=== PATIENT | male | born 1965 | race Caucasian/White ===

== ENCOUNTER 2017-03-01 13:41 | Emergency (ER) | payer BC, OTHER ==
[~2017-03-01] VITALS: Ht 170.2 cm; Wt 72.2 kg
[2017-03-01 13:42] VITALS: TEMP 36.7; Ht 170.2 cm; Wt 72.2 kg
--- NOTE | 2017-03-01 14:21 | EMERGENCY ROOM VISIT NOTE ---
History First contact with patient: 13:48 Chief Complaint: HIP PAIN Stated Complaint: HIP, LOWER BACK, SHOULDER History of Present Illness The patient is a 51 year old male who presents to the Emergency Room with complaints of left hip pain, left shoulder pain and left facial pain after falling from a tree stand yesterday. He reports that he had just finished hunting and was climbing down from his tree stand when his phone rang. He answered his phone and lost his footing and slipped and fell backwards. He states that he landed approximately 20 feet and landed on his left side. He does not completely remember everything that happened, and feels that he may have lost consciousness for a few seconds. He reports pain in his left hip, shoulder and left side of his face. He rates his discomfort a 4/10 at this time. He denies any headache, blurred vision, slurred speech or nausea. He denies any abdominal pain, chest pain or shortness of breath. Review of Systems A complete 10 point review of systems was reviewed with the patient with pertinent positives and negatives as per history of present illness. All else were negative. Social History Smoking Status: Never Smoker Current/Historical Medications Scheduled Prednisone (Prednisone), 50 MG PO DAILY Scheduled PRN Ibuprofen (Advil), 200-600 MG PO Q4H PRN for Pain Physical Exam Vital Signs Date Time Temp Pulse Resp B/P (MAP) Pulse Ox O2 Delivery O2 Flow Rate FiO2 03/01/17 16:50 93 18 114/80 96 03/01/17 15:44 78 18 123/74 99 Room Air 03/01/17 13:42 36.7 84 20 129/81 98 Room Air Physical Exam VITALS: Vitals are noted on the nurse's note and reviewed by myself. Vital signs stable. GENERAL: This is a 51-year-old male, in no acute distress, nondiaphoretic, well- developed well-nourished. SKIN: There are abrasions to the left side of the face. No lacerations. There is a large area of ecchymosis to the left lateral thigh. There is a small abrasion to the left posterior shoulder. HEAD: There are abrasions and tenderness to palpation in the left side of the face and left periorbital region. Otherwise, normocephalic atraumatic. EARS: External auditory canals clear, tympanic membranes pearly dangelo without erythema or effusion bilaterally. No hemotympanum. EYES: Pupils equal round and reactive to light and accommodation. Extraocular movements intact. MOUTH: Mucous membranes moist. NECK: Supple without nuchal rigidity. Cervical spine is nontender. HEART: Regular rate and rhythm without murmurs gallops or rubs. LUNGS: Clear to auscultation bilaterally without wheezes, rales or rhonchi. No retractions or accessory muscle use. ABDOMEN: There is mild tenderness to the left lower chest wall/upper abdomen. There is no ecchymosis. MUSCULOSKELETAL: There is tenderness to palpation in the left posterior shoulder and left lateral thigh. No tenderness over the lumbar or thoracic spine. Extremities are otherwise nontender. NEURO: Patient was alert and oriented to person place and time. Normal sensation to light and sharp touch. No focal neurological deficits. Medical Decision & Procedures ER Provider Diagnostic Interpretation: HEAD WITHOUT CONTRAST (CT) IMPRESSION: 1. No acute intracranial abnormality. 2. Mild left infratemporal and periorbital soft tissue swelling without calvarial fracture or opaque foreign body. CERVICAL SPINE W/O IMPRESSION: 1. No acute cervical spine fracture or subluxation. 2. Degenerative changes of the cervical spine as above, most pronounced at the C5-6 and C6-C7 levels. CHEST CT WITH CONTRAST IMPRESSION: 1. No acute intrathoracic abnormality identified. No pneumothorax. 2. No acute thoracic fracture identified. ABDOMEN AND PELVIS CT WITH IV AND ORAL CONTRAST IMPRESSION: 1. No acute intra-abdominal or intrapelvic abnormality identified. No evidence of solid organ injury. 2. Acute nondisplaced fracture of the anterolateral left 10th rib. 3. Additional findings as above. L SHOULDER MIN 2 VIEWS ROUTINE IMPRESSION: Acute nondisplaced fracture of the left proximal humerus along the inferior portion of the greater tuberosity. L FEMUR 2 VIEWS ROUTINE IMPRESSION: Mild soft tissue swelling without acute fracture or dislocation. Laboratory Results Test 03/01/17 14:16 Bedside Hemoglobin 14.3 g/dl (14.0-18.0) Bedside Hematocrit 42 % (42-52) Bedside Sodium 140 mEq/L (135-144) Bedside Potassium 3.9 mEq/L (3.3-5.0) Bedside Chloride 102 mEq/L (101-112) Bedside Total CO2 24 mEq/l (24-31) Anion Gap 18.0 mmol/L (16-25) Bedside Blood Urea Nitrogen 15 mg/dl (7-18) Bedside Creatinine 1.0 mg/dl (0.6-1.3) Bedside Glucose (other) 109 mg/dl (70-99) Bedside Ionized Calcium (Linnette) 1.17 mmol/l (1.12-1.32) Medical Decision Differential diagnosis includes fracture, contusion, dislocation, skull fracture , intracranial hemorrhage, intra-abdominal injury, pneumothorax, among others. The patient is a 51-year-old male who presents today complaining of left hip and shoulder pain after fall from a height. CT scan of the head and neck were performed and were unremarkable. CT of the chest and abdomen/pelvis were performed and showed a non-distracted fracture of the left 10th rib. He was given an incentive spirometer. There were no acute intra-abdominal or intrathoracic findings. Patient has a hematoma to the left lateral upper leg, but no fx on X-ray. Shoulder x-ray did show a nondisplaced fx of the proximal humerus at the greater tuberosity. Patient was placed in an arm sling and given information for orthopedic follow-up. He was offered pain medication but declined. He did request some prednisone for his back, as he states that his back has been tightening up since this occurred and prednisone is the only thing that works for him. He will follow-up with orthopedics and his primary care provider as needed. Based on the patient's presentation and work up, I feel the patient is stable for outpatient treatment. The patient was educated to return to the emergency department for any worsening of their current condition or new/concerning symptoms. He will follow up with orthopedics. Medication Reconcilliation Current Medication List: was personally reviewed by me Blood Pressure Screening Patient's blood pressure: Normal blood pressure Impression Primary Impression: Fracture of greater tuberosity of humerus Additional Impressions: Rib fracture Fall Departure Information Dispostion Home / Self-Care Condition GOOD Prescriptions Prednisone (Prednisone) 50 Mg Tab 50 MG PO DAILY for 4 Days, #4 TAB Prov: Kelsey Fischer .JEFF 03/01/17 Referrals Eun Peck M.D. (PCP) Pawel Kat D.O. Patient Instructions My [facility] Additional Instructions Follow-up with Dr. Kat for further evaluation of your humerus fracture. For pain control, you can use the following [id number] medicines (if >12 yo): - Regular strength (325mg/tab) Tylenol (acetaminophen) 2 tabs every 4-6 hours as needed. Do not exceed 12 tablets in a 24 hour period. Avoid taking more than 4 grams (4000 mg) of Tylenol per day. This includes any other sources of acetaminophen you may take on a regular basis. - Regular strength (200 mg/tab) Advil (ibuprofen) 1-2 tabs every 4-6 hours as needed. Do not exceed a dose of 3200 mg per day. Apply ice to the shoulder and ribs as needed. Use the incentive spirometer as directed. This will help to fully inflate your lungs and prevent pneumonia or lung collapse. Follow-up with your primary care provider as needed. Return to the emergency department with any worsening or new/concerning symptoms. Problem Qualifiers Primary Impression: Fracture of greater tuberosity of humerus Encounter type: initial encounter Fracture type: closed Fracture alignment : nondisplaced Laterality: left Qualified Codes: S42.255A - Nondisplaced fracture of greater tuberosity of left humerus, initial encounter for closed fracture Additional Impressions: Rib fracture Encounter type: initial encounter Rib fracture type: single rib Fracture type: closed Laterality: left Qualified Codes: S22.32XA - Fracture of one rib, left side, initial encounter for closed fracture Fall Encounter type: initial encounter Qualified Codes: W19.XXXA - Unspecified fall, initial encounter
[2017-03-01 14:33] LABS: ISTAT HEMOGLOBIN 14.3 g/dl (14.0-18.0); ISTAT IONIZED CALCIUM 1.17 mmol/l (1.12-1.32)
[2017-03-01] MEDS ORDERED: IBUP-1050 PO (14:33)
[2017-03-01] MEDS ORDERED: OPTIRAY 320 IV PRN (15:15)
--- NOTE | 2017-03-01 15:19 | DIAGNOSTIC IMAGING REPORT ---
HEAD WITHOUT CONTRAST (CT) CLINICAL HISTORY: 51 years-old Male with fall from [place], head injury w/ loc. Acute fall with head injury. TECHNIQUE: Multiple axial CT images of the head were obtained without contrast. A dose lowering technique was utilized adhering to the principles of ALARA. COMPARISON: CT cervical spine of same day. FINDINGS: No acute intracranial hemorrhage, midline shift, mass, large territorial ischemia or abnormal extra-axial collection. The calvarium is intact. The paranasal sinuses, mastoid air cells, and middle ear cavities are clear. Mild left infratemporal and periorbital soft tissue swelling. IMPRESSION: 1. No acute intracranial abnormality. 2. Mild left infratemporal and periorbital soft tissue swelling without calvarial fracture or opaque foreign body. The above report was generated using voice recognition software. It may contain grammatical, syntax or spelling errors. Electronically signed by: Christopher Yung M.D. 03/01/2017 3:18 PM Dictated Date/Time: 03/01/2017 3:16 PM
--- NOTE | 2017-03-01 15:40 | DIAGNOSTIC IMAGING REPORT ---
CHEST CT WITH CONTRAST HISTORY: Acute chest trauma status post fall fall from [place], left upper abd/rib pain TECHNIQUE: Multiaxial CT images of the chest were performed following the intravenous administration of contrast. 115 mL Optiray 320 IV contrast was administered A dose lowering technique was utilized adhering to the principles of ALARA. COMPARISON: CT abdomen and pelvis of same day. FINDINGS: Thyroid is homogeneous dominant nodule. No pathologic adenopathy of the chest identified. Heart is normal in size without pericardial effusion. The thoracic aorta is normal in both course and caliber without dissection or aneurysm. The imaged proximal great vessels appear patent. The opacified pulmonary arterial tree is unremarkable. There is no pneumothorax, pleural effusion or focal airspace consolidation. Minimal dependent bibasilar atelectasis. No large pulmonary contusion identified. The central airways are patent. No acute abnormality of the imaged upper abdomen. Cyst of the left hepatic lobe is noted, 1.0 cm. The soft tissues are unremarkable. The bones of the chest appear intact without acute fracture or subluxation. Mild multilevel endplate degenerative changes and facet arthropathy of the spine. No sternal fracture. IMPRESSION: 1. No acute intrathoracic abnormality identified. No pneumothorax. 2. No acute thoracic fracture identified. Electronically signed by: Christopher Yung M.D. 03/01/2017 3:39 PM Dictated Date/Time: 03/01/2017 3:34 PM
--- NOTE | 2017-03-01 15:44 | DIAGNOSTIC IMAGING REPORT ---
CERVICAL SPINE W/O CT DOSE: 1785.61 mGy.cm CLINICAL HISTORY: 51 years-old Male with [facility], head injury w/ loc. Acute neck injury status post fall COMPARISON: CT head of same day. TECHNIQUE: Multiple axial CT images of the cervical spine were obtained without contrast. A dose lowering technique was utilized adhering to the principles of ALARA. FINDINGS: Moderate intervertebral disc space narrowing with endplate spurring noted at C5-C6 and C6-C7. Mild multilevel facet arthrosis. Moderate facet arthrosis on the left at C4-C5. No acute fracture or subluxation identified. Mastoid air cells and middle ear cavities are clear. Imaged paranasal sinuses are also generally clear. Evaluation of the central canal and neuroforamen is limited compared to that of MRI. Mild central canal stenosis is present at C6-C7. Severe right and moderate left foraminal stenosis also present at C6-C7. At C5-C6 there is at least moderate bilateral foraminal narrowing. No pneumothorax. Soft tissues are unremarkable. IMPRESSION: 1. No acute cervical spine fracture or subluxation. 2. Degenerative changes of the cervical spine as above, most pronounced at the C5-6 and C6-C7 levels. The above report was generated using voice recognition software. It may contain grammatical, syntax or spelling errors. Electronically signed by: Christopher Yung M.D. 03/01/2017 3:43 PM Dictated Date/Time: 03/01/2017 3:40 PM
--- NOTE | 2017-03-01 15:57 | DIAGNOSTIC IMAGING REPORT ---
ABDOMEN AND PELVIS CT WITH IV AND ORAL CONTRAST HISTORY: Acute abdominal trauma status post fall fall from [place], left upper abd/rib pain TECHNIQUE: Multiaxial CT images of the abdomen and pelvis were performed following the use of intravenous and oral contrast. 115 mL Optiray 320 IV contrast was administered. A dose lowering technique was utilized adhering to the principles of ALARA. COMPARISON STUDY: CT chest of same day. FINDINGS: Minimal subsegmental bibasilar atelectasis. No pneumoperitoneum identified. The imaged inferior cardiac chambers are unremarkable. 1 cm subserosal lesion of the medial left hepatic lobe suggests cyst with a 1.2 cm lesion of segment V also suggesting a hepatic cyst or hemangioma. No intrahepatic biliary ductal dilation. The spleen, pancreas and adrenal glands are within normal limits. Gallbladder is also unremarkable. Low attenuating lesions of the bilateral measuring up to 6 mm within the superior pole left kidney are too small to characterize however suggest renal cysts. Renal sinus cysts are also present on the left. Ureters are unremarkable. Urinary bladder is within normal limits. The prostate is mildly prominent in size. There are phleboliths of the pelvis. The abdominal aorta is normal in both course and caliber. No bulky adenopathy. Postoperative changes from prior left inguinal hernia repair. There is no bowel obstruction or focal bowel wall thickening. No abdominal ascites. No pneumoperitoneum. The appendix is not seen and may be surgically absent. Soft tissues are unremarkable. Acute nondisplaced fracture is noted involving the anterolateral aspect of the left 10th rib. Multilevel degenerative changes of the lumbar spine. IMPRESSION: 1. No acute intra-abdominal or intrapelvic abnormality identified. No evidence of solid organ injury. 2. Acute nondisplaced fracture of the anterolateral left 10th rib. 3. Additional findings as above. Electronically signed by: Christopher Yung M.D. 03/01/2017 3:56 PM Dictated Date/Time: 03/01/2017 3:43 PM
--- NOTE | 2017-03-01 16:11 | DIAGNOSTIC IMAGING REPORT ---
L FEMUR 2 VIEWS ROUTINE HISTORY: 51 years-old Male fall from [place], left leg injury acute left thigh pain status post fall COMPARISON: None available TECHNIQUE: 2 views of the left femur FINDINGS: Contrast opacified urinary bladder is noted from recent IV contrast. There is no acute fracture or dislocation identified. Only minimal degenerative changes of the left femoral acetabular joint. Mild soft tissue swelling laterally to the greater trochanter. No opaque foreign body. Mild spurring along the superior pole of patella. IMPRESSION: Mild soft tissue swelling without acute fracture or dislocation. The above report was generated using voice recognition software. It may contain grammatical, syntax or spelling errors. Electronically signed by: Christopher Yung M.D. 03/01/2017 4:09 PM Dictated Date/Time: 03/01/2017 4:08 PM
--- NOTE | 2017-03-01 16:13 | DIAGNOSTIC IMAGING REPORT ---
L SHOULDER MIN 2 VIEWS ROUTINE HISTORY: 51 years-old Male fall from [employer], left shoulder injury acute left shoulder pain status post fall COMPARISON: None available TECHNIQUE: 3 views of the left shoulder FINDINGS: Mild acromioclavicular and glenohumeral degenerative changes. There is an acute nondisplaced fracture noted involving the inferior cortical margin of the greater tuberosity. Mild associated soft tissue swelling. Imaged lung evans are clear. IMPRESSION: Acute nondisplaced fracture of the left proximal humerus along the inferior portion of the greater tuberosity. The above report was generated using voice recognition software. It may contain grammatical, syntax or spelling errors. Electronically signed by: Christopher Yung M.D. 03/01/2017 4:12 PM Dictated Date/Time: 03/01/2017 4:10 PM
[2017-03-01] MEDS ORDERED: PRED50TA PO (16:35)
[2017-03-01 16:50] VITALS: BP 114/80; PULSE 93; O2SAT 96
== END 2017-03-01 16:51 | disposition home or self-care (01) ==
LOC: C.EDB 13:42 → C.EDA 16:51
DX: S42.252A Displaced fracture of greater tuberosity of left humerus, initial encounter for closed fracture (principal); S22.32XA Fracture of one rib, left side, initial encounter for closed fracture; W14.XXXA Fall from tree, initial encounter; Y92.821 Forest as the place of occurrence of the external cause; S00.81XA Abrasion of other part of head, initial encounter; S40.212A Abrasion of left shoulder, initial encounter; S70.12XA Contusion of left thigh, initial encounter

== ENCOUNTER 2017-09-07 07:56 | Emergency (ER) | payer BC ==
[~2017-09-07 07:56] MED LIST: IBUP-1050 PO
[2017-09-07 08:01] VITALS: TEMP 36.5
--- NOTE | 2017-09-07 08:22 | EMERGENCY ROOM VISIT NOTE ---
History Report prepared by Rachel: Gabrielle Purvis Under the Supervision of: Dr. Alla Hagan M.D. First contact with patient: 08:06 Chief Complaint: BACK PAIN Stated Complaint: LOWER BACK PAIN History of Present Illness The patient is a 52 year old male who presents to the Emergency Room with complaints of lower back pain beginning at around 2230 last night. He reports he woke up at 2230 last night to make a bowel movement but was unable. He states he took 2 tabs of ex-lax and some MOM and was still unable to make a bowel movement. His last normal bowel movement was 2 days [employer] however he notes he has had some constipation for the past week. He describes his pain as a tightness and states that sitting up alleviates some of his pain but lying down worsens it. The patient states he has a thin stream while urinating but denies any hematochezia. Source of History: patient Onset: 2230 last night Position: back (lower) Quality: other (tightness) Modifying Factors (Worsening): other (lying down) Modifying Factors (Relieving): other (sitting up) Associated Symptoms: + urinary symptoms (thin stream), No hematochezia Note: Positive constipation for the past week Review of Systems See HPI for pertinent positives & negatives. A total of 10 systems reviewed and were otherwise negative. Past Medical & Surgical Medical Problems: (1) No significant past medical history No significant past medical history Family History Lung disease Social History Smoking Status: Never Smoker Smokeless Tobacco Use: No Alcohol Use: none Marital Status: Housing Status: lives with family Occupation Status: employed Current/Historical Medications No Active Prescriptions or Reported Meds Allergies Coded Allergies: No Known Allergies (Unverified , 09/07/17) Physical Exam Vital Signs Date Time Temp Pulse Resp B/P (MAP) Pulse Ox O2 Delivery O2 Flow Rate FiO2 09/07/17 10:09 76 20 118/86 99 09/07/17 08:01 36.5 86 20 131/77 98 Room Air Physical Exam Vital signs reviewed. General: Well-appearing male, in no significant distress. HEENT: No scleral icterus, PERRLA, neck supple. Atraumatic. Cardiovascular: Regular rate and rhythm, no extra sounds. Pulmonary: Clear to auscultation bilaterally, normal work of breathing. Abdomen: Soft, nontender, positive bowel sounds. Distended lower abdomen with no tympany to percussion. No specific point of tenderness. Musculoskeletal: Atraumatic, no peripheral edema. Lumbar spine is nontender to palpation. No step offs or deformity. Ambulates without difficulty. Neurologic: Patient awake alert and oriented x 3 Skin: Warm, dry, no rash Medical Decision & Procedures Medications Administered Medications (Trade) Dose Ordered Sig/Josr Route Start Time Stop Time Status Last Admin Dose Admin Miscellaneous (Soap Suds Enema) 1 ea NOW STAT GA 09/07/17 09:01 09/07/17 09:02 DC 09/07/17 09:05 1 ED Course 0809: Past medical records reviewed. The patient was evaluated in room A11. A complete history and physical examination was performed. 09: Ordered Lorazepam 1 mg SL, Soap Suds Enema 1 ea GA 0932: I checked on the patient at this time. He is feeling slightly better. 1000: Upon reevaluation, the patient appeared to have improvement of his symptoms. I discussed findings with him. He verbalized agreement of the treatment plan. He was discharged home. Medical Decision Differential diagnosis: Etiologies such as functional constipation, impaction, obstruction, volvulus, metabolic abnormality, infection, neurologic, as well as others were entertained. This patient was evaluated and appeared to be in some discomfort. Patient has a mildly distended abdomen without tympany. A bladder scan was performed and has minimal urine in the bladder. Rectal exam was performed for significant amount of formed stool. Disimpaction was performed by myself. Patient had a small BM in the bathroom but remained largely unsuccessful. A soapsuds enema was administered with significant results. On my reevaluation the patient was feeling much improved. He declined the x-ray which was then canceled. Patient was discharged to care of his will follow up with his PCP for reevaluation this week. He will return to the ER for worsening symptoms or any medical concerns. Medication Reconcilliation Current Medication List: was personally reviewed by me Blood Pressure Screening Patient's blood pressure: Normal blood pressure Blood pressure disposition: Did not require urgent referral Impression Primary Impression: Constipation Scribe Attestation The scribe's documentation has been prepared under my direction and personally reviewed by me in its entirety. I confirm that the note above accurately reflects all work, treatment, procedures, and medical decision making performed by me. Departure Information Dispostion Home / Self-Care Prescriptions No Active Prescriptions or Reported Meds Referrals Eun Peck M.D. (PCP) Forms HOME CARE DOCUMENTATION FORM, IMPORTANT VISIT INFORMATION Patient Instructions My [facility] Additional Instructions Diagnosis: Constipation Increase the fiber in your diet. MiraLAX 1 capful daily as needed for constipation. Follow-up with your physician this week for reevaluation. Return to the ER for worsening of symptoms or any medical concerns.
[2017-09-07] MEDS ORDERED: SOAP SUDS ENEMA PR STA (09:01)
[2017-09-07] MEDS ORDERED: LORAZEPAM 1 MG TAB SL STA (09:01)
[2017-09-07 10:09] VITALS: BP 118/86; PULSE 76; O2SAT 99
== END 2017-09-07 10:00 | disposition home or self-care (01) ==
LOC: C.EDB 07:57 → C.EDA 10:00
DX: K59.00 Constipation, unspecified (principal); M54.5 Low back pain